=== PATIENT | female | born 1955 | race Caucasian/White ===

== ENCOUNTER 2020-03-09 13:38 | Emergency (ER) | payer OTHER ==
[~2020-03-09] VITALS: Ht 157.5 cm; Wt 56.0 kg
--- NOTE | 2020-03-09 14:18 | NUR ---
[facility]- [phone] daughter in lobby. updated. sts will bring in pts cell phone. as
--- NOTE | 2020-03-09 14:19 | NUR ---
provider in room for eval. as
--- NOTE | 2020-03-09 14:34 | NUR ---
lab/cxr at bedside. as
[2020-03-09 14:47] LABS: MEAN CORPUSCULAR HGB CONC 32.1 g/dL (32.4-35.8); MEAN CORPUSCULAR VOLUME 99.4 fL (80-100); PLATELET COUNT 350 x10^3/uL (130-400); RED BLOOD COUNT 3.49 x10^6/uL (3.82-5.3); RED CELL DISTRIBUTION WIDTH 17.3 % (9.6-15.2)
[2020-03-09 14:56] LABS: ANION GAP 4 mmol/L (5-15); CALCIUM 8.6 mg/dL (8.5-10.1); CHLORIDE 108 mmol/L (98-107); CREATININE 1.13 mg/dL (0.55-1.02)
[2020-03-09 15:12] LABS: BASOPHILS # (AUTO) 0.06 x10^3/uL (0-0.1); BASOPHILS % (AUTO) 0 % (0-1); EOSINOPHILS # (AUTO) 0.49 x10^3/uL (0-0.4); EOSINOPHILS % (AUTO) 4 % (1-7); LYMPHOCYTES # (AUTO) 2.79 x10^3/uL (1-3.4); LYMPHOCYTES % (AUTO) 20 % (22-44); MD SCAN; MONOCYTES # (AUTO) 1.47 x10^3/uL (0.2-0.8); MONOCYTES % (AUTO) 11 % (2-9); NEUTROPHILS # (AUTO) 8.88 x10^3/uL (1.8-6.8); NEUTROPHILS % (AUTO) 65 % (42-75)
--- NOTE | 2020-03-09 15:15 | NUR ---
awaiting [facility] records. recheck. as
[2020-03-09 16:24] VITALS: BP 109/73
--- NOTE | 2020-03-09 16:24 | NUR ---
TASK RN NOTE: PT RECLINED IN BED WATCHING TELEVISION AND TAKING SIPS OF WATER. NAD NOTED AT THIS TIME. AWAITING RECORDS FROM [facility].
--- NOTE | 2020-03-09 16:44 | NUR ---
instructional technology coordinator: [facility] records given after recieved via fax.
== END 2020-03-09 17:09 | disposition home or self-care (01) ==
LOC: ED 17:05
DX: I27.0 Primary pulmonary hypertension (principal)
CPT/HCPCS: 36415; 71045; 80048; 85025; 99284